=== PATIENT | male | born 1945 | race Caucasian/White ===

== ENCOUNTER → 2021-02-26 08:06 | Outpatient (CLI) | payer MEDICARE, SELFPAY ==
[2021-02-26 19:45] LABS: BUN Creatinine Ratio 25.6 (6-22); Blood Urea Nitrogen 21 mg/dL (9-20); Calcium 9.6 mg/dL (8.4-10.2); Carbon Dioxide 33 mmol/L (22-32); Chloride 102 mmol/L (98-107); Estimated Glomerular Filt Rate > 60.0 mL/min (>60); Glucose 123 mg/dL (80-110); HEMOLYSIS 30 (0-50); Potassium 4.7 mmol/L (3.4-5.1); Sodium 138 mmol/L (137-145)
== END ==
PROVIDERS: Family Provider Family Medicine; PCP Family Medicine; Visit Provider Internal Medicine Cardiovascular Disease
DX: I10 Essential (primary) hypertension (principal)
CPT/HCPCS: 80048

== ENCOUNTER → 2021-05-15 09:05 | Outpatient (CLI) | payer MEDICARE, SELFPAY ==
[2021-05-15 21:04] LABS: Alanine Aminotransferase 19 IU/L (<50); Albumin Globulin Ratio 1.7 (1.0-2.8); Alkaline Phosphatase 78 U/L (38-126); Aspartate Aminotransferase 25 IU/L (17-59); BUN Creatinine Ratio 20.5 (6-22); Bilirubin Total 0.8 mg/dL (0.2-1.3); Blood Urea Nitrogen 16 mg/dL (9-20); Calcium 9.3 mg/dL (8.4-10.2); Carbon Dioxide 26 mmol/L (22-32); Chloride 105 mmol/L (98-107); Cholesterol 115 mg/dL (140-199); Estimated Glomerular Filt Rate > 60.0 mL/min (>60); Globulin 2.4 g/dL (1.7-4.1); Glucose 112 mg/dL (80-110); HDL Cholesterol 51 mg/dL (40-60); HEMOLYSIS 21 (0-50); LDL Cholesterol Calculated 49 mg/dL (<100); Potassium 4.6 mmol/L (3.4-5.1); Sodium 138 mmol/L (137-145); Total Protein 6.4 g/dL (6.3-8.2); Triglycerides 73 mg/dL (35-150)
[2021-05-15 21:34] LABS: Prostate Specific Antigen 1.37 ng/mL (0.10-4.00)
== END ==
PROVIDERS: Family Provider Family Medicine; PCP Physician Assistant; Visit Provider Physician Assistant
DX: I10 Essential (primary) hypertension (principal); N40.1 Benign prostatic hyperplasia with lower urinary tract symptoms; E78.5 Hyperlipidemia, unspecified; N13.8 Other obstructive and reflux uropathy
CPT/HCPCS: 80053; 80061; 84153

== ENCOUNTER → 2022-10-07 10:53 | Outpatient (CLI) | payer MEDICARE, OTHER, SELFPAY ==
--- NOTE | 2022-10-07 | DI.MRI.S_ITS ---
PROCEDURE: MR LUMBAR SPINE WO CON INDICATIONS: LUMBAR RADICULOPATHY TECHNIQUE: Noncontrast sagittal T1 spin echo and T2 fast echo, sagittal STIR, and T2 fast spin echo through the lumbar spine. In cases with scoliosis, additional coronal T2 fast spin echo may be performed. COMPARISON: [facility], RG, XR L-SPINE 5V, 08/23/2003, 13:42. [facility], CR, XR LUMBAR SPINE WITH OBLIQUES PLUS FLEXION EXTENSION, 09/30/2022, 14:14. FINDINGS: Image quality: This examination is limited by involuntary motion artifact. Alignment and Curvature: Mild levoconvex thoracolumbar scoliotic curvature is noted. Bone Marrow: Marrow is of normal overall signal. Scattered foci are seen, which are hyperintense on T1-weighted and T2-weighted imaging, which are most consistent with benign vertebral body hemangiomas. No acute vertebral body compression fractures. Spinal Cord: Conus medullaris terminates at the L1 level. Visualized cord demonstrates normal signal and size. Paraspinous Soft Tissues: No paravertebral masses. T12-L1: At least moderate loss of disc height and disc signal can be seen. Reactive marrow endplate changes are seen, which demonstrate mixed T1 weighted and T2-weighted signal, and are attributed to a combination of edema and fatty metaplasia (Modic type I and Modic type II changes). Mild to moderate disc bulge is seen. There is a superimposed central disc protrusion. There is moderate to severe right-sided and moderate left-sided neural foraminal narrowing. Mild to moderate central canal narrowing is seen. L1-L2: Moderate loss of disc height is seen. Loss of disc signal is seen. Moderate generalized disc bulge is seen. There is a superimposed central disc protrusion. Mild facet joint hypertrophy is seen. Associated hypertrophy of the ligamentum flavum can be seen. At least moderate bilateral neural foraminal narrowing can be seen. Moderate to severe central canal narrowing is seen, as on series 8 image 18. L2-L3: Moderate loss of disc height is seen. Loss of disc signal is seen. Moderate disc bulge is seen, which is eccentric to the left, with a left foraminal disc protrusion, as on series 8, image 23. Mild facet joint hypertrophy is seen. Associated hypertrophy of the ligamentum flavum can be seen. There is at least moderate bilateral neural foraminal narrowing seen. Moderate to severe central canal narrowing is seen at this level. L3-L4: Moderate loss of disc height is seen. Loss of disc signal is seen. Moderate generalized disc bulge is seen. There is a superimposed central disc protrusion. Moderate facet joint hypertrophy is seen. Associated hypertrophy of the ligamentum flavum can be seen. There is at least moderate bilateral neural foraminal narrowing seen. Moderate to severe central canal narrowing is seen, as on series 8 image 28. L4-L5: At least moderate loss of disc height and disc signal can be seen. Reactive marrow endplate changes are seen, which are hyperintense on T1-weighted and T2-weighted imaging and most consistent with fatty metaplasia (Modic type II changes). At least moderate disc bulge is seen. There is a superimposed central disc protrusion. At least moderate facet hypertrophy is seen. Associated hypertrophy of the ligamentum flavum can be seen. There is at least moderate bilateral neural foraminal narrowing seen. There is a degree of compression seen upon the exiting nerve roots. Severe central canal narrowing is seen, as on series 6, image 5. L5-S1: [id number] loss of disc height and disc signal can be seen. Moderate disc bulge is seen, which is eccentric to the left side. Bridging endplate osteophytes can be seen on the left. Mild to moderate facet hypertrophy is seen. There is moderate right-sided and moderate to severe left-sided neural foraminal narrowing. There is a degree of compression seen upon the exiting left L5 nerve root. Mild to moderate central canal narrowing is seen. IMPRESSION: Multiple levels of relatively prominent lumbar spine degenerative change can be seen. Dictated by: Russ Luna M.D. on 10/07/2022 at 14:21 Approved by: Russ Luna M.D. on 10/07/2022 at 14:28
== END ==
PROVIDERS: Family Provider Family Medicine; PCP Physician Assistant; Referring Provider Physical Medicine & Rehabilitation Pain Medicine; Visit Provider Physical Medicine & Rehabilitation Pain Medicine
DX: M47.26 Other spondylosis with radiculopathy, lumbar region; M47.27 Other spondylosis with radiculopathy, lumbosacral region
CPT/HCPCS: 72148

== ENCOUNTER 2023-03-10 07:57 | Day surgery (SDC) | payer MEDICARE, SELFPAY ==
[2023-03-10] MEDS: LACTATED RINGERS 1,000 ML 200 ML IV (08:24)
[2023-03-10 08:37] VITALS: BMI 27.3
--- NOTE | 2023-03-10 09:16 | P.HP_ITS ---
History of Present Illness History of Present Illness Date Patient Seen: 03/10/23 Time Patient Seen: 09:17 Chief complaint: Screening Colonoscopy Narrative: The patient presents for colorectal screening. Personal history of colonic polyps. Last colonoscopy approximately 4 years ago in [place]. His mother developed colon cancer at advanced age of 106. On further history denies any recent gastrointestinal symptoms. No nausea, vomiting, abdominal pain, loss of appetite, unexplained weight loss, change in bowel habits, or blood per rectum. FOR[facility]LY [facility], [facility] Medical History Ankle pain (~2019) BPH w urinary obs/LUTS (09/07/03) Cataracts, bilateral (~2016) Chicken pox (~1949) Chronic back pain Colon polyps (~2003) COPD (chronic obstructive pulmonary disease) (~2015) Dislocation closed, vertebra, thoracic (09/01/03) Dislocation, vertebra closed, lumbar (09/01/03) Emphysema, unspecified Excessive daytime sleepiness Former smoker, stopped smoking in distant past Fractures (~1961) Hearing loss (~1999) Hyperlipidemia (09/07/03) Low back pain (09/07/03) Measles (~1950) Obstructive sleep apnea of adult Pneumothorax (~1961) Rosacea Seasonal allergies Sleep apnea (~2006) Snoring Tinnitus (~2009) Surgical History Anesthesia Bone spur (~1981) History of coronary artery stent placement (~2013) History of kidney surgery (~2016) History of surgery (~1961) S/P CABG (coronary artery bypass graft) S/P CABG x 3 (~2006) Family History Father Cancer Grandfather Sepsis Grandmother Sepsis Grandfather History of heart disease Grandmother History of heart disease Social History marital status: (to Aisha, lives in [facility]) household members: spouse lives independently: Yes caregiver/support person: No housing: house occupational status: other current occupational exposures/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, 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, Retired Smoking Status: Former smoker alcohol intake: former Meds Home Medications and Allergies Home Medications Medication Instructions Recorded Confirmed Type carvedilol 6.25 mg tablet (Coreg) 6.25 mg PO BID #180 tabs 11/28/16 10/21/22 Rx sildenafil (pulm.hypertension) 20 20 mg PO SEE INSTRUCTIONS #50 tabs 11/28/16 03/10/23 Rx mg tablet Respironics Remstar CPAP #1 ea 04/19/19 10/21/22 History nitroglycerin 0.4 mg sublingual 0.4 mg sublingual Q5M PRN 05/13/21 10/21/22 History tablet vit cap PO 05/15/21 10/21/22 History C,E,zinc,Oj-trkzu-4-lutein-zeaxanthin 250 mg-2.5 mg-0.5 mg capsule atorvastatin 80 mg tablet (Lipitor) 80 mg PO QEVENING #90 tabs 07/16/21 03/10/23 Rx losartan 50 mg PO BID 03/25/22 03/10/23 History Allergies Allergy/AdvReac Type Severity Reaction Status Date / Time morphine Allergy Unknown GOOFY, Verified 03/10/23 08:26 CONFUSION Exam Narrative Exam Narrative: General adult man alert oriented no acute distress Assessment & Plan Assessment and plan (1) Personal history of colonic polyps: Status: Acute Assessment & Plan narrative: The patient requires colorectal screening and colonoscopy is recommended. Technical details were discussed. Risks, benefits, alternatives explained. Risks including but not limited to myocardial infarction, aspiration, bleeding, pain, missed lesion, incomplete examination, need for further radiographic studies, colonic perforation, and need for major abdominal surgery were discussed. All questions were answered to their satisfaction, and they are in agreement with this plan.
[2023-03-10 09:44] VITALS: BP 113/65; PULSE 62; RESP 18; TEMP 36.7; O2SAT 98
--- NOTE | 2023-03-10 09:45 | PM.OP.COLON ---
Operative Date/Time/Diagnoses Date of procedure: 03/10/23 Time of procedure: 09:45 Pre-op diagnosis: Personal history of colonic polyps Post-op diagnosis: same Procedure & Clinicians Study performed: Colonoscopy Same procedure as scheduled: Yes Indications: Personal history of colonic polyps. Family history of colon cancer in mother of advanced age Surgeon: Dhruv Guerra Procedure Notes Procedure in detail: The history and physical was performed/updated and the patient is ASA class is 3. The procedure was discussed in detail with the patient. Potential risks complications including infection, bleeding, missed diagnosis, perforation, need for surgery, and were explained. Their questions were answered and informed consent was obtained. Patient was brought to the procedure room and placed standard monitoring equipment. The patient's vital signs were monitored continuously throughout the entire procedure. Prior to starting time-out was performed. The patient was placed in the left lateral recumbent position. Procedural sedation was administered by anesthesia. Examination began with a thorough inspection of the perianal area there was no evidence of fissures, fistulae, external hemorrhoids or cutaneous malignancy. The colonoscopy scope was then placed into the anal canal and was advanced to the cecum, which was identified by the ileocecal valve, the appendiceal orifice and the confluence of the taenia. The scope was then slowly withdrawn examining colon thoroughly in all directions, irrigating it of any residual stool. Colon was normal in its appearance. Without masses or polyps. There was mild diverticulosis within the sigmoid colon. The patient tolerated the procedure well. They will be discharged once criteria are met. The prep was of good/excellent quality. The withdrawl time was 6 minutes. Findings: divertiulosis Specimen(s): none sent Impression: Normal colonoscopy Post-procedure Recommendations: High fiber diet Plan for aftercare: Likely no need for further endoscopy Disposition: same day surgery
[2023-03-10 09:49] VITALS: BP 126/71; PULSE 54; RESP 14; O2SAT 97
[2023-03-10 09:54] VITALS: BP 121/74; PULSE 56; RESP 18; O2SAT 97
[2023-03-10 09:59] VITALS: BP 136/71; PULSE 58; RESP 12; TEMP 37.1; O2SAT 98
== END 2023-03-10 10:23 | disposition home or self-care (01) ==
PROVIDERS: Family Provider Family Medicine; PCP Family Medicine; Referring Provider Surgery; Visit Provider Surgery
PROC: 0DJD8ZZ Inspection of Lower Intestinal Tract, Via Natural or Artificial Opening Endoscopic (ICD-10-PCS; CPT 45378; principal; 2023-03-10 09:15)
DX: Z12.11 Encounter for screening for malignant neoplasm of colon (principal); Z86.010 Personal history of colon polyps; K57.30 Diverticulosis of large intestine without perforation or abscess without bleeding
CPT/HCPCS: G0105